=== PATIENT | female | born 1970 | race Caucasian/White ===

== ENCOUNTER → 2016-12-22 | Outpatient (CLI) | payer BC ==
[~2016-12-22] MED LIST: AMOXIL500 MG PO; ANTIVERT/2525 MG PO; ANTIVERT25 MG PO; AVELOX400 MG PO; BACTRIM DS 8001 TA1 PO; CEPHALEXIN500 M1 PO; CIPRO500 MG PO; CIPROFLOXACIN500 MG PO; CLINDAMYCIN HC300 MG PO; COMBIVENT1 ARO IH; CORDROL20 MG PO; DELTASONE10 MG PO; DELTASONE20 MG PO; DUONEB 3 MG/3 ML3 M1 INH; KEFLEX500 MG PO; LEVAQUIN250 MG PO; LEVOFLOXACIN500 MG PO; MEDROL DOSEPAK4 MG PO; MOTRIN800 MG PO; OMNICEF300 MG PO; ORASONE20 MG PO; PREDNICOT20 MG PO; PREDNISONE10 MG PO; PROTONIX40 MG PO; ROBITUSSIN AC 110 ML PO; SINGULAIR10 MG PO; SYMBICORT1 AE1 IH; VIBRAMYCIN100 MG PO; ZITHROMAX Z PA250 MG PO; ZOFRAN ODT4 MG SL; ZYRTEC10 MG PO
== END | disposition home or self-care (01) ==
LOC: MAMMO 17:14
DX: Z12.31 Encounter for screening mammogram for malignant neoplasm of breast (principal)

== ENCOUNTER 2017-03-05 20:22 | Inpatient (IN) | payer BC ==
[~2017-03-05] VITALS: Ht 162.5 cm; Wt 122.7 kg
[2017-03-05 20:25] VITALS: BP 152/64
[2017-03-05 20:47] LABS: BILIRUBIN NEGATIVE (NEGATIVE); BLOOD NEGATIVE (NEGATIVE); CLARITY CLEAR (CLEAR); COLOR YELLOW (YELLOW); GLUCOSE NEGATIVE (NEGATIVE); KETONE NEGATIVE (NEGATIVE); LEUKO ESTERASE NEGATIVE (NEGATIVE); NITRITE NEGATIVE (NEGATIVE); PH 6.5 (5.0-9.0); SPECIFIC GRAVITY <= 1.005 (1.005-1.030); UROBILINOGEN 0.2 E.U./dl (0.2-1.0)
[2017-03-05 20:48] VITALS: BP 142/79
[2017-03-05 20:50] LABS: BASO # 0.1 10*3/uL (0.0-0.1); BASO % 0.5 % (0.0-1.0); EOS # 0.3 10*3/uL (0.0-0.4); EOS % 2.1 % (1.0-4.0); HEMOGLOBIN 15.1 g/dl (12.0-16.0); LYMPH # 2.3 10*3/uL (1.3-4.4); LYMPH % 14.8 % (27.0-41.0); MEAN CELL VOLUME 87.3 fl (81.0-99.0); MEAN CORPUSCULAR HGB 28.7 pg (27.0-31.0); MEAN CORPUSCULAR HGB CONC 32.8 g/dl (33.0-37.0); MEAN PLATELET VOLUME 8.6 fl (9.6-12.3); MONO # 0.8 10*3/uL (0.1-1.0); MONO % 5.4 % (3.0-9.0); NEUT # 11.8 10*3/uL (2.3-7.9); NEUT % 76.6 % (47.0-73.0); PLATELET COUNT AUTOMATED 387 10*3/uL (130-400); RED BLOOD COUNT 5.27 10*6/uL (4.10-5.10); WHITE BLOOD COUNT 15.4 10*3/uL (4.8-10.8)
[2017-03-05 20:56] LABS: BACTERIA TRACE; EPITHELIAL CELLS 35-40; RBC 0-2 rbc/hpf (0-2)
[2017-03-05 21:00] LABS: ACT PARTIAL THROMBO TIME 25.1 SECONDS (20.8-31.5)
[2017-03-05 21:03] VITALS: BP 132/59
[2017-03-05 21:07] LABS: ALBUMIN 3.3 gm/dl (3.1-4.5); ALKALINE PHOSPHATASE 116 U/L (45-117); BUN 11 mg/dl (7-24); CHLORIDE 102 mmol/L (98-107); CREATININE 0.74 mg/dL (0.55-1.02); POTASSIUM 4.1 mmol/L (3.5-5.1); SGOT/AST 21 IU/L (3-35); SGPT/ALT 30 U/L (12-78); SODIUM 138 mmol/L (136-145); TOTAL PROTEIN 8.2 gm/dL (6.4-8.2)
[2017-03-05 21:09] LABS: BETA-HCG, QUANT < 1.0 mIU/mL (1-3); TROPONIN I < 0.015 ng/ml (<0.045)
--- NOTE | 2017-03-05 21:22 | NUR ---
PT WITH SEVERAL EPISODES OF PSVT, EACH CONVERTED WITH PATIENT "BEARING DOWN", PT REMAINS ASYMTOMATIC THROUGHOUT , A&OX3, DENIES CHEST PAIN OR SHORTNESS OF BREATH AT ANY TIME
[2017-03-05 21:44] VITALS: BP 124/60
--- NOTE | 2017-03-05 21:58 | NUR ---
PATIENT RATE IN 80'S POSY LOPRESSOR ADMINISTRATION, PT A&O X3 ASYMPTOMATIC
[2017-03-05 21:59] VITALS: BP 122/58
[2017-03-05 22:45] VITALS: BP 146/75
--- NOTE | 2017-03-05 22:45 | NUR ---
DR. HUTCHINSON SAID HE NOTIFIED DR. GARCIA OF CONSULT. HE SAID THAT DR. GARCIA WILL SEE PATIENT IN AM.
--- NOTE | 2017-03-05 22:45 | NUR ---
A 46, admitted to ICCU, under the services of DARINEL Knox DO with a diagnosis of SIRS (SYSTEMIC INFLAMMATORY RESPONSE SYSTEM), SVT. Chief complaint is HEART PALPATATIONS AND DIZZINESS X2 DAYS. Patient arrived via stretcher from ER. Monitor applied. Initial assessment completed. Vital signs taken and recorded. DARINEL KNOX DO notified of admission to the unit. Orders received. See assessment for past medical history, medications and allergies. Patient and/or family oriented to unit. [facility] visitation policy reviewed. Clothing/patient valuable form completed. ERIKA MURPHY
[2017-03-05] MEDS ORDERED: DUONEB 3 MG/3 ML3 M1 INH (23:23)
[2017-03-06] VITALS: BP 127/67
[2017-03-06 03:14] LABS: BASO # 0.1 10*3/uL (0.0-0.1); BASO % 0.5 % (0.0-1.0); EOS # 0.3 10*3/uL (0.0-0.4); EOS % 2.5 % (1.0-4.0); HEMATOCRIT 40.4 % (37.0-47.0); HEMOGLOBIN 13.2 g/dl (12.0-16.0); LYMPH # 2.4 10*3/uL (1.3-4.4); LYMPH % 18.4 % (27.0-41.0); MEAN CELL VOLUME 87.8 fl (81.0-99.0); MEAN CORPUSCULAR HGB 28.7 pg (27.0-31.0); MEAN CORPUSCULAR HGB CONC 32.7 g/dl (33.0-37.0); MEAN PLATELET VOLUME 8.5 fl (9.6-12.3); MONO # 0.9 10*3/uL (0.1-1.0); MONO % 6.5 % (3.0-9.0); NEUT # 9.5 10*3/uL (2.3-7.9); NEUT % 71.6 % (47.0-73.0); PLATELET COUNT AUTOMATED 329 10*3/uL (130-400); RED CELL DISTRI WIDTH 15.1 % (0-14.5); WHITE BLOOD COUNT 13.2 10*3/uL (4.8-10.8)
[2017-03-06 03:28] LABS: ALBUMIN 2.8 gm/dl (3.1-4.5); ALKALINE PHOSPHATASE 96 U/L (45-117); BUN 10 mg/dl (7-24); CHLORIDE 104 mmol/L (98-107); CHOLESTEROL 198 mg/dL (<200); CREATININE 0.59 mg/dL (0.55-1.02); FREE T4 0.85 ng/dl (0.76-1.46); HDL CHOLESTEROL 30 mg/dl (40-60); LDL CHOLESTEROL 133 mg/dL (9-159); MAGNESIUM 2.1 mg/dL (1.5-2.1); PHOSPHOROUS 3.4 mg/dL (2.5-4.9); POTASSIUM 3.7 mmol/L (3.5-5.1); SGOT/AST 14 IU/L (3-35); SGPT/ALT 25 U/L (12-78); SODIUM 139 mmol/L (136-145); TOTAL PROTEIN 6.7 gm/dL (6.4-8.2); TRIGLYCERIDES 175 mg/dl (<150); VLDL CHOLESTEROL 35 mg/dL (6-40)
[2017-03-06 03:41] VITALS: BP 131/62
[2017-03-06 06:54] LABS: VITAMIN D, 25-HYDROXY 10.9 ng/mL (30-100)
[2017-03-06 08:00] VITALS: BP 144/68
[2017-03-06 12:00] VITALS: BP 143/52
--- NOTE | 2017-03-06 13:05 | NUR ---
DR GARCIA IN TO SEE PT.
[2017-03-06] MEDS ORDERED: TOPROL XL50 M1 PO (13:37)
--- NOTE | 2017-03-06 13:53 | NUR ---
DISCHARGE ORDERS RECIEVED FROM DR GARCIA AND DR BAXTER.
--- NOTE | 2017-03-06 14:12 | NUR ---
PT DISCHARGED AT THIS TIME WITH TO HOME.
== END 2017-03-06 14:12 | disposition home or self-care (01) | DRG 309 ==
LOC: ED 20:22 → EDHOLD 21:31 → ICCU 21:44
PROVIDERS: Student in an Organized Health Care Education/Training Program; ADMIT Internal Medicine
DX: I47.1 Supraventricular tachycardia (principal); R65.10 Systemic inflammatory response syndrome (SIRS) of non-infectious origin without acute organ dysfunction; B35.1 Tinea unguium; D72.9 Disorder of white blood cells, unspecified; D72.810 Lymphocytopenia; E55.9 Vitamin D deficiency, unspecified; J45.909 Unspecified asthma, uncomplicated; L40.9 Psoriasis, unspecified; R73.9 Hyperglycemia, unspecified; E66.9 Obesity, unspecified; E78.5 Hyperlipidemia, unspecified; Z82.49 Family history of ischemic heart disease and other diseases of the circulatory system; Z71.6 Tobacco abuse counseling; Z79.899 Other long term (current) drug therapy; Z83.3 Family history of diabetes mellitus; Z88.1 Allergy status to other antibiotic agents; Z72.0 Tobacco use

== ENCOUNTER → 2017-03-22 | Outpatient (CLI) | payer BC ==
[~2017-03-22] MED LIST changes: +TOPROL XL50 M1 PO
== END ==
LOC: CARD 07:00
DX: I08.1 Rheumatic disorders of both mitral and tricuspid valves (principal)

== ENCOUNTER 2017-05-31 20:05 | Inpatient (IN) | payer BC ==
[~2017-05-31] VITALS: Ht 162.5 cm; Wt 127.9 kg
[2017-05-31 20:25] LABS: BASO % 0.5 % (0.0-1.0); EOS # 0.3 10*3/uL (0.0-0.4); EOS % 3.5 % (1.0-4.0); HEMATOCRIT 44.6 % (37.0-47.0); HEMOGLOBIN 14.8 g/dl (12.0-16.0); LYMPH # 2.8 10*3/uL (1.3-4.4); LYMPH % 33.1 % (27.0-41.0); MEAN CELL VOLUME 87.6 fl (81.0-99.0); MEAN CORPUSCULAR HGB 29.1 pg (27.0-31.0); MEAN CORPUSCULAR HGB CONC 33.2 g/dl (33.0-37.0); MONO # 0.5 10*3/uL (0.1-1.0); MONO % 6.5 % (3.0-9.0); NEUT # 4.7 10*3/uL (2.3-7.9); NEUT % 56.2 % (47.0-73.0); PLATELET COUNT AUTOMATED 271 10*3/uL (130-400); RED BLOOD COUNT 5.09 10*6/uL (4.10-5.10); RED CELL DISTRI WIDTH 14.4 % (0-14.5); WHITE BLOOD COUNT 8.4 10*3/uL (4.8-10.8)
[2017-05-31 20:43] VITALS: BP 138/54
[2017-05-31 21:06] LABS: ACT PARTIAL THROMBO TIME 24.7 SECONDS (20.8-31.5)
[2017-05-31 21:07] LABS: ALBUMIN 3.4 gm/dl (3.1-4.5); ALKALINE PHOSPHATASE 102 U/L (45-117); BUN 11 mg/dl (7-24); CHLORIDE 104 mmol/L (98-107); CREATININE 0.63 mg/dL (0.55-1.02); POTASSIUM 3.7 mmol/L (3.5-5.1); SGOT/AST 22 IU/L (3-35); SGPT/ALT 40 U/L (12-78); SODIUM 141 mmol/L (136-145); TOTAL PROTEIN 7.6 gm/dL (6.4-8.2)
[2017-05-31 21:08] LABS: TROPONIN I < 0.015 ng/ml (<0.045)
[2017-05-31 21:48] VITALS: BP 124/80
[2017-06-01 00:40] VITALS: BP 138/68
[2017-06-01] MEDS ORDERED: METOPROLOL TART75 MG PO (01:05)
[2017-06-01 03:56] VITALS: BP 144/60
[2017-06-01 07:19] LABS: BASO % 0.6 % (0.0-1.0); EOS # 0.3 10*3/uL (0.0-0.4); HEMATOCRIT 43.7 % (37.0-47.0); LYMPH # 1.6 10*3/uL (1.3-4.4); LYMPH % 26.5 % (27.0-41.0); MEAN CELL VOLUME 88.5 fl (81.0-99.0); MEAN CORPUSCULAR HGB 28.3 pg (27.0-31.0); MEAN PLATELET VOLUME 9.2 fl (9.6-12.3); MONO # 0.5 10*3/uL (0.1-1.0); MONO % 7.3 % (3.0-9.0); NEUT # 3.7 10*3/uL (2.3-7.9); NEUT % 60.3 % (47.0-73.0); PLATELET COUNT AUTOMATED 279 10*3/uL (130-400); RED BLOOD COUNT 4.94 10*6/uL (4.10-5.10); RED CELL DISTRI WIDTH 14.3 % (0-14.5); WHITE BLOOD COUNT 6.2 10*3/uL (4.8-10.8)
[2017-06-01 07:39] LABS: CHLORIDE 103 mmol/L (98-107); POTASSIUM 3.7 mmol/L (3.5-5.1); SGPT/ALT 40 U/L (12-78); SODIUM 139 mmol/L (136-145)
[2017-06-01 07:47] LABS: ALBUMIN 3.3 gm/dl (3.1-4.5); ALKALINE PHOSPHATASE 104 U/L (45-117); BUN 12 mg/dl (7-24); CHOLESTEROL 194 mg/dL (<200); CREATININE 0.68 mg/dL (0.55-1.02); HDL CHOLESTEROL 27 mg/dl (40-60); LDL CHOLESTEROL 119 mg/dL (9-159); PHOSPHOROUS 3.8 mg/dL (2.5-4.9); SGOT/AST 24 IU/L (3-35); TOTAL PROTEIN 7.2 gm/dL (6.4-8.2); TRIGLYCERIDES 239 mg/dl (<150); VLDL CHOLESTEROL 48 mg/dL (6-40)
[2017-06-01 08:00] VITALS: BP 136/60
[2017-06-01 08:07] LABS: VITAMIN D, 25-HYDROXY 11.3 ng/mL (30-100)
[2017-06-01 12:00] VITALS: BP 155/72
[2017-06-01 16:00] VITALS: BP 132/78
[2017-06-01] MEDS ORDERED: LIPITOR40 MG PO (16:57)
[2017-06-01] MEDS ORDERED: VITAMIN D-32000 UNIT PO (16:59)
== END 2017-06-01 17:44 | disposition home or self-care (01) | DRG 206 ==
LOC: ED 20:05 → EDHOLD 06-01 00:12 → 4E 06-01 00:20
PROVIDERS: Hospitalist; Student in an Organized Health Care Education/Training Program
PROC: 4A02XM4 Measurement of Cardiac Total Activity, External Approach (ICD-10-PCS; principal; 2017-06-01)
DX: M94.0 Chondrocostal junction syndrome [Tietze] (principal); Z68.42 Body mass index [BMI] 45.0-49.9, adult; I47.1 Supraventricular tachycardia; E78.5 Hyperlipidemia, unspecified; J45.909 Unspecified asthma, uncomplicated; L40.9 Psoriasis, unspecified; E78.1 Pure hyperglyceridemia; E66.9 Obesity, unspecified; R94.6 Abnormal results of thyroid function studies; F17.210 Nicotine dependence, cigarettes, uncomplicated; Z88.1 Allergy status to other antibiotic agents; Z79.899 Other long term (current) drug therapy; Z71.6 Tobacco abuse counseling; Z83.3 Family history of diabetes mellitus; Z82.49 Family history of ischemic heart disease and other diseases of the circulatory system

== ENCOUNTER → 2017-06-04 | Outpatient (CLI) | payer BC ==
[~2017-06-04] MED LIST changes: +LIPITOR40 MG PO; +METOPROLOL TART75 MG PO; +VITAMIN D-32000 UNIT PO
[2017-06-04 18:00] LABS: FREE T4 0.74 ng/dl (0.76-1.46)
[2017-06-04 18:05] LABS: THYROID STIM HORMONE (HS) 38.4 uIU/ml (0.358-4.75)
== END | disposition home or self-care (01) ==
LOC: LAB 17:13
PROVIDERS: Internal Medicine
DX: R94.6 Abnormal results of thyroid function studies (principal)

== ENCOUNTER → 2025-02-05 | Outpatient (CLI) | payer BC ==
[~2025-02-05] MED LIST changes: +ACETAZOLAMIDE250 MG PO; +ASPIRIN ADULT L81 M2 PO; +ATORVASTATIN CA40 M1 PO; +DOXYCYCLINE HY100 M3 PO; +JARDIANCE10 MG PO; +K-TAB20 MEQ PO; +LASIX20 MG PO; +LASIX40 MG PO; +LEVOTHYROXINE100 MC1 PO; +LEVOTHYROXINE50 MCG PO; +METOPROLOL SUCC25 M2 PO; +PRIMATENE MIS11.7 GM INH; +VITAMIN D3125 MCG PO; +VITAMIN D31250 MC1 PO
[2025-02-05 17:23] LABS: BASO # 0.1 10*3/uL (0.0-0.1); BASO % 0.8 % (0.0-1.0); EOS # 0.4 10*3/uL (0.0-0.4); EOS % 3.9 % (1.0-4.0); MEAN CELL VOLUME 95.8 fl (81.0-99.0); MEAN CORPUSCULAR HGB 31.3 pg (27.0-31.0); MEAN PLATELET VOLUME 8.8 fl (9.6-12.3); MONO # 0.6 10*3/uL (0.1-1.0); MONO % 6.2 % (3.0-9.0); NEUT # 6.2 10*3/uL (2.3-7.9); NEUT % 67.4 % (47.0-73.0); NUCLEATED RED BLOOD CELL 0.0 % (0.0-0.0); NUCLEATED RED BLOOD CELL 0.0 10*3/uL (0.0-0.0); PLATELET COUNT AUTOMATED 305 10*3/uL (130-400); RED CELL DISTRI WIDTH 14.0 % (0-14.5)
[2025-02-05 18:06] LABS: BUN 13 mg/dl (9-23); LDL CHOLESTEROL 171 mg/dL (9-159); SGPT/ALT 15 U/L (5-49)
[2025-02-05 18:07] LABS: VITAMIN D, 25-HYDROXY 66.5 ng/mL (30-100)
[2025-02-05 18:23] LABS: FREE T4 1.08 ng/dl (0.89-1.76)
== END | disposition home or self-care (01) ==
LOC: LAB 16:16
PROVIDERS: ATTEND Internal Medicine
DX: E03.9 Hypothyroidism, unspecified (principal); I50.9 Heart failure, unspecified; E55.9 Vitamin D deficiency, unspecified